=== PATIENT | female | born 1945 | race Asian ===

== ENCOUNTER → 2016-07-09 | Outpatient (CLI) | payer MEDICARE, OTHER ==
--- NOTE | 2016-07-09 09:39 | WOMENS IMAGING REPORT ---
EXAM DESCRIPTION: BONE DENSITY HIP/SPINE COMPLETED DATE/TIME: 07/09/2016 8:50 am REASON FOR STUDY: Z12.31 ROUTINE SCREENING MAMMO Z12.31 ENCNTR SCREEN MAMMOGRAM FOR MALIGNANT NEOPL ASM OF NEFTALI M81.0 AGE-RELATED OSTEOPOROSIS W/O CURRENT PATHOLOGICAL FRAC COMPARISON: 2002, 2008, 2010, 2012 TECHNIQUE: Dual-Energy X-ray Absorptiometry (DEXA) of the AP Spine and Hip. LIMITATIONS: None. FINDINGS: LUMBAR SPINE: The bone mineral density (BMD) measured from L1-L4 in the AP projection correlates with a T-score of +2.4, which is normal as defined by the World Health Organization. This includes vertebral body endp late sclerosis and sclerosis along the facet joints. HIP: The bone mineral density (BMD) measured in the left femoral neck at the hip correlates with a T-score of -0.7, which is within normal range as defined by the World Health Organization. This is stable c ompared to previous studies COMMENT: The World Health Organization defines low BMD as follows: T-score: Normal: Greater than -1.0 Osteopenia: Between -1.0 and -2.5 Osteoporosis: Less than -2.5 without fractures Established osteoporosis: Less than -2.5 with fractures In general, you may wish to consider: Diagnosis Treatment Follow-up DEXA Normal BMD Prevention 2-3 years Osteopenia Prevention/Therapy 1-2 years Osteoporosis Therapy Yearly TECHNICAL DOCUMENTATION: JOB ID: [id number] [employer]- All Rights Reserved
--- NOTE | 2016-07-09 10:21 | WOMENS IMAGING REPORT ---
EXAM DESCRIPTION: BILAT SCREENING MAMMO W/CAD COMPLETED DATE/TIME: 07/09/2016 8:50 am REASON FOR STUDY: Z12.31 ROUTINE SCREENING MAMMO Z12.31 ENCNTR SCREEN MAMMOGRAM FOR MALIGNANT NEOPL ASM OF NEFTALI M81.0 AGE-RELATED OSTEOPOROSIS W/O CURRENT PATHOLOGICAL FRAC COMPARISON: 11/08/2010 TECHNIQUE: Standard craniocaudal and mediolateral oblique views of each breast recorded using digita l acquisition. LIMITATIONS: None. FINDINGS: No masses, calcifications or architectural distortion. No areas of suspicion. Read with the assistance of CAD. .[facility] - R2 Cenova Version 1.3 .[facility] - R2 Cenova Version 1.3 .[facility] Imaging - R2 Cenova Version 2.4 .[facility] [place] - R2 Cenova Version 2.4 .[facility], [facility]1983 - R2 Nutrition Coordinator Version 9.2 BREAST DENSITY: b. There are scattered areas of fibroglandular density. BIRAD: 1 NEGATIVE RECOMMENDATION: ROUTINE SCREENING COMMENT: PATIENT NOTIFIED BY LETTER. The [employer] recommends an annual screening mammogram for women aged 40 years or over. Each patient will receive a reminder prior to the anniversary date of her mammogram. The [employer] (A[employer]) has developed recommendations for screening MRI of the breast s in certain patient populations, to be used in conjunction with mammography. Breast MRI surveillanc e may be appropriate for women with more than 20% lifetime risk of developing breast cancer as deter mined by genetic testing, significant family history of the disease, or history of mantle radiation f or Hodgkins Disease. ACR Practice Guidelines 2008. TECHNICAL DOCUMENTATION: FINDING NUMBER: (1) ASSESSMENT: (1) JOB ID: [id number] [employer]- All Rights Reserved
== END ==
LOC: WI 08:17
PROVIDERS: ATTEND Internal Medicine
DX: Z12.31 Encounter for screening mammogram for malignant neoplasm of breast (principal); M81.0 Age-related osteoporosis without current pathological fracture
CPT/HCPCS: 77080; G0202; 77067

== ENCOUNTER 2016-09-30 06:23 | Emergency (ER) | payer MEDICARE, OTHER ==
[2016-09-30] MEDS ORDERED: METHOCARBAMOL 500 MG TABLET PO ONE (08:13)
--- NOTE | 2016-09-30 09:30 | ER Document Report ---
HPI - HPI Patient complains to provider of: left knee pain Onset: This morning Onset/Duration: Sudden Quality of pain: Achy Severity: Severe Pain Level: 5 Context: Patient presents emergency department with complaints of left knee pain. She reports she woke up with the knee pain. She reports swelling to the knee. Denies past medical history of injury to the knee. She reports she has had 2 surgeries on her right knee and overcompensates and uses her left knee a lot. She reports recently been going up and down steps. She denies other symptoms such as fever vomiting diarrhea. She denies trauma. Associated Symptoms: None Exacerbated by: Movement Relieved by: Denies Similar symptoms previously: No Recently seen / treated by doctor: No - REPRODUCTIVE Reproductive: DENIES: : - DERM Skin Color: Normal Past Medical History - General Information source: Patient - Social History Smoking Status: Never Smoker Cigarette use (# per day): No Frequency of alcohol use: None Drug Abuse: None Lives with: Family Family History: None Patient has suicidal ideation: No Patient has homicidal ideation: No - Past Medical History Cardiac Medical History: Reports: Hx Hypercholesterolemia - meds x 5 years, Hx Hypertension - meds x 20 years, Hx Heart Murmur - denies SBE prophylaxis Pulmonary Medical History: Reports: Hx Bronchitis, Hx Pneumonia - denies hospitalization Denies: Hx Asthma, Hx COPD, Hx Respiratory Failure, Hx Sleep Apnea, Hx Tuberculosis - Hx BCG vaccination in [place] as child Neurological Medical History: Denies: Hx Cerebrovascular Accident, Hx Seizures Renal/ Medical History: Denies: Hx End Stage Renal Disease, Hx Kidney Stones, Hx Ovarian Cysts, Hx Peritoneal Dialysis, Hx Pelvic Inflammatory Disease Malignancy Medical History: Denies: Hx Breast Cancer, Hx Cervical Cancer, Hx Leukemia, Hx Lung Cancer, Hx Ovarian Cancer GI Medical History: Denies: Hx Crohn's Disease, Hx Gastroesophageal Reflux Disease, Hx Hiatal Hernia, Hx Irritable Bowel, Hx Liver Failure, Hx Ulcer Musculoskeltal Medical History: Reports Hx Arthritis, Denies Hx Fibromyalgia, Denies Hx Muscular Dystrophy Traumatic Medical History: Denies: Hx Fractures Infectious Medical History: Denies: Hx HIV Past Surgical History: Reports: Hx Appendectomy, Hx Cholecystectomy, Hx Hysterectomy, Hx Orthopedic Surgery - r knee. Denies: Hx Adenoidectomy, Hx Bowel Surgery, Hx Section, Hx Colostomy, Hx Coronary Artery Bypass Graft, Hx Gastric Bypass Surgery, Hx Herniorrhaphy, Hx Mastectomy, Hx Pacemaker , Hx Tonsillectomy, Hx Tubal Ligation - Immunizations Hx Diphtheria, Pertussis, Tetanus Vaccination: No - allergic Vertical Provider Document - CONSTITUTIONAL Agree With Documented VS: Yes Exam Limitations: No Limitations General Appearance: WD/WN, Mild Distress - winces when knee palpated - INFECTION CONTROL TRAVEL OUTSIDE OF THE [place] IN LAST 30 DAYS: No - HEENT HEENT: Atraumatic, Normocephalic - NECK Neck: Normal Inspection, Supple - RESPIRATORY Respiratory: Breath Sounds Normal, No Respiratory Distress O2 Sat by Pulse Oximetry: 97 - CARDIOVASCULAR Cardiovascular: Regular Rate - MUSCULOSKELETAL/EXTREMETIES Musculoskeletal/Extremeties: Tender - Complains of anterior suprapatellar swelling and pain . No calf pain no posterior leg pain, no calf swelling/warmth /redness - NEURO Level of Consciousness: Awake, Alert, Appropriate Motor/Sensory: No Motor Deficit - DERM Integumentary: Warm, Dry Adult Front & Back Diagram: 1 - reports anterior suprapatella ttp, swelling, no obvious deformity, no erythema, no warmth Course - Re-evaluation Re-evalutation: 09/30/16 10:[address] Ray who advised consult radiologist. I contacted Dr. Inman radiologist who reports looks like fluid in the suprapatella bursa. 09/30/16 Labs unremarkable. Knee has no erythema and no redness . Patient was instructed on x-ray. Patient was instructed on bursitis. Instructed on importance of follow-up with orthopedic and different options to include rest possible aspiration possible surgery. Patient and her verbalized understanding to all instructions. Chilton prescribed for pain - Vital Signs Vital signs: Temp Pulse Resp BP Pulse Ox 97.7 F 57 L 18 144/68 H 97 09/30/16 08:09 09/30/16 08:09 09/30/16 08:09 09/30/16 08:09 09/30/16 08:09 - Laboratory Result Diagrams: 09/30/16 09:50 09/30/16 09:50 - Diagnostic Test Radiology reviewed: Image reviewed, Reports reviewed - Diagnostic report text EXAM DESCRIPTION: KNEE LEFT 4 VIEW COMPLETED DATE/TIME: 09/30/2016 8:28 am REASON FOR STUDY: pain, swelling COMPARISON: 03/18/2015 TECHNIQUE: Four views study left knee LIMITATIONS: None. FINDINGS: No acute fractures. Minor narrowing noted medial joint compartment. Likely joint fluid. TECHNICAL DOCUMENTATION: JOB ID: [id number] [employer]- All Rights Reserved RAD/KNEE LEFT 4 VIEW IMPRESSION: No acute fractures. Minor narrowing medial joint compartment. Joint fluid Procedures - Immobilization Left Knee Immobilizer type: Jef wrap Performed by: PCT Post-Proc Neuro Vasc Exam: Unchanged from pre-exam Discharge - Discharge Clinical Impression: Suprapatellar bursitis of left knee, Elevated blood pressure reading Knee pain, acute Qualifiers: Laterality: left Qualified Code(s): M25.562 - Pain in left knee Condition: Stable Disposition: HOME, SELF-CARE Instructions: Bursitis ([facility]), Oral Narcotic Medication ([facility]), Jef Wrap ([facility]) Additional Instructions: *You have been evaluated for left knee pain, bursitis *Maintain the jef wrap for comfort *Rest/Ice/Elevate your knee *Use your walker to ambulate, avoid going up/down the steps, rest your knee *Follow up with orthopedics for evaluation-call for an appointment *Take medication as prescribed for acute pain *Return to ED for worsening condition, changes, needs Monitor your blood pressure. Your blood pressure was elevated today. This may be because you were anxious, in pain or because you need medication. It is important to follow up with your primary care provider for full evaluation. Prescriptions: Hydrocodone/Acetaminophen [Chilton 5-325 Tablet] 1 each PO QID #15 tablet Forms: Elevated Blood Pressure Referrals: CHRISTIAN NEELY MD [Primary Care Provider] - Follow up in 1 week [facility] [Provider Group] - Follow up in 3-5 days
[2016-09-30] MEDS ORDERED: IBUPROFEN 800 MG TABLET PO ONE (09:33)
[2016-09-30 10:00] LABS: ABSOLUTE EOSINOPHILS # (AUTO) 0.1 10^3/uL (0.0-0.6); ABSOLUTE LYMPHOCYTES (AUTO) 1.5 10^3/uL (0.5-4.7); ABSOLUTE MONOCYTES (AUTO) 0.3 10^3/uL (0.1-1.4); ABSOLUTE NEUT (AUTO) 2.2 10^3/uL (1.7-8.2); BASOPHILS % (AUTO) 0.5 % (0-2); EOSINOPHILS % (AUTO) 2.7 % (0-6); HEMATOCRIT 35.6 % (36.0-47.0); HEMOGLOBIN 12.3 g/dL (12.0-15.5); HGB HCT DIFFERENCE 1.3; LYMPHOCYTES % (AUTO) 36.3 % (13-45); MEAN CORPUSCULAR HEMOGLOBIN 30.7 pg (27.0-33.4); MEAN CORPUSCULAR HGB CONC 34.5 g/dL (32.0-36.0); MEAN CORPUSCULAR VOLUME 89 fl (80-97); MONOCYTES % (AUTO) 6.9 % (3-13); RED CELL DISTRIBUTION WIDTH 12.7 % (11.5-14.0); SEGMENTED NEUTROPHILS % (AUTO) 53.6 % (42-78); WHITE BLOOD COUNT 4.1 10^3/uL (4.0-10.5)
[2016-09-30 10:23] LABS: ALANINE AMINOTRANSFERASE 32 U/L (9-52); ALBUMIN 4.4 g/dL (3.5-5.0); ALKALINE PHOSPHATASE 47 U/L (38-126); ANION GAP 14 (5-19); ASPARTATE AMINO TRANSFERASE 27 U/L (14-36); BILIRUBIN,DIRECT 0.1 mg/dL (0.0-0.4); BILIRUBIN,TOTAL 0.4 mg/dL (0.2-1.3); BLOOD UREA NITROGEN 23 mg/dL (7-20); CALCIUM 9.7 mg/dL (8.4-10.2); CARBON DIOXIDE 25 mmol/L (22-30); CHLORIDE 104 mmol/L (98-107); CREATININE RESULT 0.54 mg/dL (0.52-1.25); GLUCOSE 92 mg/dL (75-110); POTASSIUM 4.1 mmol/L (3.6-5.0); SODIUM 142.7 mmol/L (137-145); URIC ACID 5.8 mg/dL (2.5-7.5)
[2016-09-30 10:43] VITALS: BP 139/64
== END 2016-09-30 10:43 | disposition home or self-care (01) ==
LOC: ER 06:23
DX: M71.9 Bursopathy, unspecified (principal); M25.562 Pain in left knee; I10 Essential (primary) hypertension
CPT/HCPCS: 99284; 36415; 84550; 85025; 80053; 73562; A9270 ×2

== ENCOUNTER 2016-11-08 06:39 | Emergency (ER) | payer MEDICARE, OTHER ==
[2016-11-08 06:58] VITALS: BP 154/76
--- NOTE | 2016-11-08 08:19 | ER Document Report ---
HPI - HPI Patient complains to provider of: cough, sore throat Onset: Other - few days Quality of pain: Achy Severity: Severe Pain Level: 5 Context: Presents to emergency department with complaints of cough sore throat for the past few days. Denies fever vomiting reports a little loose stools. Reports she initially thought it was allergies and has been taking Claritin without relief of symptoms. Denies chest pain shortness of breath. Reports occasional sputum production but usually is a dry cough. Reports her chest hurts when she coughs. Associated Symptoms: Nonproductive cough Exacerbated by: Coughing Relieved by: Denies Similar symptoms previously: No Recently seen / treated by doctor: No - CARDIOVASCULAR Cardiovascular: REPORTS: Chest pain - REPRODUCTIVE Reproductive: DENIES: : - DERM Skin Color: Normal Past Medical History - General Information source: Patient - Social History Smoking Status: Former Smoker Cigarette use (# per day): No Frequency of alcohol use: None Drug Abuse: None Lives with: Family - Family History: None Patient has suicidal ideation: No Patient has homicidal ideation: No - Past Medical History Cardiac Medical History: Reports: Hx Hypercholesterolemia - meds x 5 years, Hx Hypertension - meds x 20 years, Hx Heart Murmur - denies SBE prophylaxis Pulmonary Medical History: Reports: Hx Bronchitis, Hx Pneumonia - denies hospitalization Denies: Hx Asthma, Hx COPD, Hx Respiratory Failure, Hx Sleep Apnea, Hx Tuberculosis - Hx BCG vaccination in [place] as child Neurological Medical History: Denies: Hx Cerebrovascular Accident, Hx Seizures Renal/ Medical History: Denies: Hx End Stage Renal Disease, Hx Kidney Stones, Hx Ovarian Cysts, Hx Peritoneal Dialysis, Hx Pelvic Inflammatory Disease Malignancy Medical History: Denies: Hx Breast Cancer, Hx Cervical Cancer, Hx Leukemia, Hx Lung Cancer, Hx Ovarian Cancer GI Medical History: Denies: Hx Crohn's Disease, Hx Gastroesophageal Reflux Disease, Hx Hiatal Hernia, Hx Irritable Bowel, Hx Liver Failure, Hx Ulcer Musculoskeltal Medical History: Reports Hx Arthritis, Denies Hx Fibromyalgia, Denies Hx Muscular Dystrophy Traumatic Medical History: Denies: Hx Fractures Infectious Medical History: Denies: Hx HIV Past Surgical History: Reports: Hx Appendectomy, Hx Cholecystectomy, Hx Hysterectomy, Hx Orthopedic Surgery - r knee. Denies: Hx Adenoidectomy, Hx Bowel Surgery, Hx Section, Hx Colostomy, Hx Coronary Artery Bypass Graft, Hx Gastric Bypass Surgery, Hx Herniorrhaphy, Hx Mastectomy, Hx Pacemaker , Hx Tonsillectomy, Hx Tubal Ligation - Immunizations Hx Diphtheria, Pertussis, Tetanus Vaccination: No - allergic Vertical Provider Document - CONSTITUTIONAL Agree With Documented VS: Yes Exam Limitations: No Limitations General Appearance: WD/WN, No Apparent Distress - INFECTION CONTROL TRAVEL OUTSIDE OF THE [place] IN LAST 30 DAYS: No - HEENT HEENT: Atraumatic, Normal ENT Exam, Normocephalic, PERRLA. negative: Conjuctival Injection, Pharyngeal Exudate, Pharyngeal Tenderness, Pharyngeal Erythema, Tympanic Membrane Red, Tympanic Membrane Bulging - NECK Neck: Normal Inspection, Supple. negative: Lymphadenopathy-Left, Lymphadenopathy-Right - RESPIRATORY Respiratory: Breath Sounds Normal, No Respiratory Distress. negative: Rhonchi, Wheezing O2 Sat by Pulse Oximetry: 98 - CARDIOVASCULAR Cardiovascular: Regular Rate, Regular Rhythm - GI/ABDOMEN Gastrointestinal: Abdomen Soft, Abdomen Non-Tender - BACK Back: Normal Inspection - MUSCULOSKELETAL/EXTREMETIES Musculoskeletal/Extremeties: MAEW, FROM - NEURO Level of Consciousness: Awake, Alert, Appropriate Motor/Sensory: No Motor Deficit - DERM Integumentary: Warm, Dry Course - Re-evaluation Re-evalutation: 11/08/16 08:00 Patient instructed on plan of care and to include strep and chest x-ray. Patient seems hesitant to have a chest x-ray. She was instructed on the importance of obtaining a chest x-ray because of the cough. She was also instructed that she can refuse if she wanted. - Vital Signs Vital signs: Temp Pulse Resp BP Pulse Ox 98.1 F 73 18 154/76 H 98 11/08/16 06:55 11/08/16 06:55 11/08/16 06:55 11/08/16 06:55 11/08/16 06:55 Discharge - Discharge Clinical Impression: Cough, Sore throat, Elevated blood pressure reading Condition: Stable Disposition: HOME, SELF-CARE Instructions: Sore Throat ([facility]) Additional Instructions: *You have been evaluated for cold symptoms today, cough, sore throat *A throat culture is pending, you will be contacted should you need antibiotics *Increase fluid intake *Take over the counter cough medication as indicated *Take Tylenol as indicated *Follow up with Dr Neely next Thursday as scheduled *Return to ED for worsening condition, changes, needs Monitor your blood pressure. Your blood pressure was elevated today. This may be because you were anxious, in pain or because you need medication. It is important to follow up with your primary care provider for full evaluation. Forms: Elevated Blood Pressure Referrals: CHRISTIAN NEELY MD [Primary Care Provider] - 11/11/16
--- NOTE | 2016-11-08 08:50 | RADIOLOGY REPORT (SQ) ---
EXAM DESCRIPTION: CHEST PA/LAT COMPLETED DATE/TIME: 11/08/2016 8:16 am REASON FOR STUDY: cough COMPARISON: 02/08/2016, 10/18/2014 EXAM PARAMETERS: NUMBER OF VIEWS: two views TECHNIQUE: Digital Frontal and Lateral radiographic views of the chest acquired. RADIATION DOSE: NA LIMITATIONS: none FINDINGS: LUNGS AND PLEURA: No opacities, masses or pneumothorax. No pleural effusion. MEDIASTINUM AND HILAR STRUCTURES: No masses or contour abnormalities. HEART AND VASCULAR STRUCTURES: Heart normal size. No evidence for failure. BONES: No acute findings. HARDWARE: Clips right upper quadrant post cholecystectomy OTHER: No other significant finding. IMPRESSION: NO SIGNIFICANT RADIOGRAPHIC FINDING IN THE CHEST. TECHNICAL DOCUMENTATION: JOB ID: [id number] [employer]- All Rights Reserved
== END 2016-11-08 09:04 | disposition home or self-care (01) ==
LOC: ER 06:39
DX: R05 Cough (principal); J02.9 Acute pharyngitis, unspecified; I10 Essential (primary) hypertension; E78.00 Pure hypercholesterolemia, unspecified; Z87.891 Personal history of nicotine dependence; Z90.49 Acquired absence of other specified parts of digestive tract; Z90.710 Acquired absence of both cervix and uterus
CPT/HCPCS: 71020; 87070; 87880; 99283

== ENCOUNTER 2017-12-18 01:45 | Emergency (ER) | payer MEDICARE, OTHER ==
--- NOTE | 2017-12-18 03:23 | ER Document Report ---
ED General - General Chief Complaint: Abdominal Pain Stated Complaint: ABDOMINAL PAIN Time Seen by Provider: 12/18/17 02:45 Notes: Patient is a 72-year-old female presents with complaint of pain feels like a "pulling type sensation that radiates around her right flank. No dysuria. No bloody urine. No vomiting. No diarrhea. She has a previous history of partial hysterectomy, appendectomy, and cholecystectomy. She says eating does not really change the pain. She denies any fevers. Pain is been there for over a week. Pain is low but worse with twisting or movement. TRAVEL OUTSIDE OF THE [place] IN LAST 30 DAYS: No - Related Data Allergies/Adverse Reactions: Penicillins Allergy (Intermediate, Verified 09/30/16 06:29) numbness of lips Past Medical History - Social History Smoking Status: Never Smoker Chew tobacco use (# tins/day): No Frequency of alcohol use: None Drug Abuse: None Family History: None Patient has suicidal ideation: No Patient has homicidal ideation: No - Past Medical History Cardiac Medical History: Reports: Hx Hypercholesterolemia - meds x 5 years, Hx Hypertension - meds x 20 years, Hx Heart Murmur - denies SBE prophylaxis Pulmonary Medical History: Reports: Hx Bronchitis, Hx Pneumonia - denies hospitalization Denies: Hx Asthma, Hx COPD, Hx Respiratory Failure, Hx Sleep Apnea, Hx Tuberculosis - Hx BCG vaccination in [place] as child Neurological Medical History: Denies: Hx Cerebrovascular Accident, Hx Seizures Renal/ Medical History: Denies: Hx End Stage Renal Disease, Hx Kidney Stones, Hx Ovarian Cysts, Hx Peritoneal Dialysis, Hx Pelvic Inflammatory Disease Malignancy Medical History: Denies: Hx Breast Cancer, Hx Cervical Cancer, Hx Leukemia, Hx Lung Cancer, Hx Ovarian Cancer GI Medical History: Denies: Hx Crohn's Disease, Hx Gastroesophageal Reflux Disease, Hx Hiatal Hernia, Hx Irritable Bowel, Hx Liver Failure, Hx Pancreatitis , Hx Ulcer Musculoskeletal Medical History: Reports Hx Arthritis, Denies Hx Fibromyalgia, Denies Hx Muscular Dystrophy Traumatic Medical History: Denies: Hx Fractures Infectious Medical History: Denies: Hx HIV Past Surgical History: Reports: Hx Appendectomy, Hx Cholecystectomy, Hx Hysterectomy, Hx Orthopedic Surgery - r knee. Denies: Hx Adenoidectomy, Hx Bowel Surgery, Hx Section, Hx Colostomy, Hx Coronary Artery Bypass Graft, Hx Gastric Bypass Surgery, Hx Herniorrhaphy, Hx Mastectomy, Hx Pacemaker , Hx Tonsillectomy, Hx Tubal Ligation - Immunizations Hx Diphtheria, Pertussis, Tetanus Vaccination: No - allergic Review of Systems - Review of Systems Notes: My Normal Review Basic REVIEW OF SYSTEMS: CONSTITUTIONAL : Denies fever, chills, or sweats. Denies recent illness. EENT: Denies eye, ear, throat, or mouth pain or symptoms. Denies nasal or sinus congestion. CARDIOVASCULAR: Denies chest pain. RESPIRATORY: Denies cough, cold, or chest congestion. Denies shortness of breath, difficulty breathing, or wheezing. GASTROINTESTINAL: Right flank pain. Denies nausea, vomiting, or diarrhea. Denies constipation. Last BM: GENITOURINARY: Denies difficulty urinating, painful urination, burning, frequency, or blood in urine. MUSCULOSKELETAL: Denies neck or back pain or joint pain or swelling. SKIN: Denies rash or skin lesions. NEUROLOGICAL: Denies altered mental status or loss of consciousness. Denies headache. Denies weakness or paralysis or loss of use of either side. Denies problems with gait or speech. Denies sensory or motor loss. ALL OTHER SYSTEMS REVIEWED AND NEGATIVE. Physical Exam - Vital signs Vitals: Temp Pulse Resp BP Pulse Ox 97.9 F 67 18 148/64 H 97 12/18/17 01:46 12/18/17 01:46 12/18/17 01:46 12/18/17 01:46 12/18/17 01:46 - Notes Notes: General Appearance: Well nourished, alert, cooperative, no acute distress, mild obvious discomfort. Well appearing. Vitals: reviewed, See vital signs table. Head: no swelling or tenderness to the head Eyes: PERRL, EOMI, Conjuctiva clear Mouth: No decreasd moisture Lungs: No wheezing, No rales, No rhonci, No accessory muscle use, good air exchange bilaterally. Heart: Normal rate, Regular rythm, No murmur, no rub Abdomen: Normal BS, soft, No rigidity, patient is a pain on the right flank however is not made worse with palpation except for pinpoint area directly over the right mid flank. No swelling. No redness. Patient does have some scars from her previous surgeries. No pain to palpation over the anterior abdomen., No guarding, no rebound, no abdominal masses, no organomegaly Extremities: strength 5/5 in all extremities, good pulses in all extremities, no swelling or tenderness in the extremities, no edema. Skin: warm, dry, appropriate color, no rash Neuro: speech clear, oriented x 3, normal affect, responds appropriately to questions. Course - Re-evaluation Re-evalutation: 12/18/17 06:15 Patient still has some pain. The patient turned and moved just to try get a better grasp of the pain. Whenever she turns or rolls she gets pinpoint pain that is right where her serratus anterior meets her abdominal rectus muscle on the right. Again this pain is not really reproducible palpation but made a lot worse with movement. Suspect most likely she might have abdominal muscle pull or tear. She does not have any evidence of hernia. CT scan shows no evidence of stone or other any other concerning findings. CT scan does show fatty liver which patient is already aware of and is being followed for. I will prescribe her some muscle relaxer. I encourage her take Tylenol Motrin for the pain otherwise. I encouraged her return to ER if she has worsening pain, vomiting, or feels unwell. Patient agrees with plan will be discharged home. Dictation of this chart was performed using voice recognition software; therefore, there may be some unintended grammatical errors. - Vital Signs Vital signs: Temp Pulse Resp BP Pulse Ox 97.9 F 67 18 148/64 H 97 12/18/17 01:46 12/18/17 01:46 12/18/17 01:46 12/18/17 01:46 12/18/17 01:46 - Laboratory Result Diagrams: 12/18/17 03:00 12/18/17 03:00 Laboratory results interpreted by me: 12/18/17 03:00 BUN 26 H AST 41 H Discharge - Discharge Clinical Impression: Flank pain Condition: Good Disposition: HOME, SELF-CARE Additional Instructions: I suspect your pain could be related to a pulled muscle on your side. Your CT scan does not show any thing concerning. There is no findings suggestive of infection. Your blood work is normal appearing. Your urine study is also normal appearing. Please rest and do not do anything exertional over the next several days. Please take Tylenol and Motrin for pain. I have also prescribed you a muscle relaxer to see if this helps with your pain as well. Please follow -up with your doctor on Thursday for close reevaluation. Please return to ER immediately for fevers, worsening pain, vomiting, or feel unwell. Prescriptions: Metaxalone [Skelaxin 800 mg Tablet] 800 mg PO ASDIR PRN #20 tablet PRN Reason: Referrals: CHRISTIAN NEELY MD [Primary Care Provider] - 12/21/17
[2017-12-18 03:27] LABS: ABSOLUTE EOSINOPHILS # (AUTO) 0.2 10^3/uL (0.0-0.6); ABSOLUTE LYMPHOCYTES (AUTO) 1.7 10^3/uL (0.5-4.7); ABSOLUTE MONOCYTES (AUTO) 0.5 10^3/uL (0.1-1.4); ABSOLUTE NEUT (AUTO) 2.8 10^3/uL (1.7-8.2); BASOPHILS % (AUTO) 0.2 % (0-2); EOSINOPHILS % (AUTO) 3.3 % (0-6); HEMATOCRIT 36.9 % (36.0-47.0); HEMOGLOBIN 12.6 g/dL (12.0-15.5); MEAN CORPUSCULAR HEMOGLOBIN 30.7 pg (27.0-33.4); MEAN CORPUSCULAR HGB CONC 34.2 g/dL (32.0-36.0); MEAN CORPUSCULAR VOLUME 90 fl (80-97); MONOCYTES % (AUTO) 9.1 % (3-13); PLATELET COUNT 217 10^3/uL (150-450); RED BLOOD COUNT 4.11 10^6/uL (3.72-5.28); RED CELL DISTRIBUTION WIDTH 12.5 % (11.5-14.0); SEGMENTED NEUTROPHILS % (AUTO) 54.4 % (42-78); TOTAL CELLS COUNTED % (AUTO) 100 %; WHITE BLOOD COUNT 5.2 10^3/uL (4.0-10.5)
[2017-12-18 03:35] LABS: APPEARANCE,URINE CLEAR; BILIRUBIN,URINE NEGATIVE (NEGATIVE); COLOR,URINE STRAW; GLUCOSE, URINE NEGATIVE (NEGATIVE); KETONES,URINE NEGATIVE (NEGATIVE); LEUKOCYTE ESTERASE,URINE NEGATIVE (NEGATIVE); NITRITE,URINE NEGATIVE (NEGATIVE); PROTEIN,URINE NEGATIVE (NEGATIVE); URINE SPECIFIC GRAVITY 1.008; UROBILINOGEN,URINE NEGATIVE mg/dL (<2.0)
[2017-12-18 03:40] LABS: ALANINE AMINOTRANSFERASE 52 U/L (9-52); ALBUMIN 4.5 g/dL (3.5-5.0); ALKALINE PHOSPHATASE 52 U/L (38-126); ANION GAP 11 (5-19); ASPARTATE AMINO TRANSFERASE 41 U/L (14-36); BILIRUBIN,DIRECT 0.2 mg/dL (0.0-0.4); BILIRUBIN,TOTAL 0.3 mg/dL (0.2-1.3); BLOOD UREA NITROGEN 26 mg/dL (7-20); CALCIUM 9.6 mg/dL (8.4-10.2); CARBON DIOXIDE 26 mmol/L (22-30); CHLORIDE 106 mmol/L (98-107); GLUCOSE 100 mg/dL (75-110); SODIUM 143.3 mmol/L (137-145); TOTAL PROTEIN 7.5 g/dL (6.3-8.2)
[2017-12-18] MEDS ORDERED: KETOROLAC TROMETHAMINE INJ/PF 30 MG/1 ML SDV IV ONE (05:06)
[2017-12-18] MEDS ORDERED: KETOROLAC TROMETHAMINE INJ/PF 30 MG/1 ML SDV IM ONE (05:08)
--- NOTE | 2017-12-18 06:07 | RADIOLOGY REPORT (SQ) ---
EXAM DESCRIPTION: CT ABDOMEN WITHOUT IV CONTRAST COMPLETED DATE/TME: 12/18/2017 05:06 CLINICAL HISTORY: right flank pain COMPARISON: None Available. TECHNIQUE: CT of the abdomen and pelvis without IV contrast. Evaluation of the solid organs and vasculature is suboptimal due to lack of IV contrast. DLP: 568.78 mGy-cm FINDINGS: Lung Bases: The visualized lung bases are clear. Bones: No destructive bone lesions identified. Degenerative change of the lumbar spine. Abdomen: Liver: The liver has normal size and decreased density. Gallbladder: Prior cholecystectomy. Spleen, Pancreas, and Adrenal Glands: The spleen, pancreas, and adrenal glands are unremarkable. Kidneys: The kidneys have normal size and contour without evidence of hydronephrosis. No obstructing ureteral calculi. Vasculature: Aortoiliac atherosclerosis. IVC is unremarkable. Stomach: The stomach and duodenum have normal course. Other: No free intraperitoneal air. No free fluid or lymphadenopathy. Pelvis: Bladder: Urinary bladder is unremarkable. Bowel: Scattered diverticula of the colon. No dilated loops of large or small bowel. No pericolic inflammatory change. Appendix: The appendix is not definitely identified. No evidence of acute appendicitis. Pelvis: Likely calcified uterine fibroids. No large adnexal masses. IMPRESSION: 1. No acute inflammatory or obstructive process identified. 2. Diverticulosis without evidence of acute diverticulitis. 3. Hepatic steatosis. This exam was performed according to our departmental dose-optimization program, which includes automated exposure control, adjustment of the mA and/or kV according to patient size and/or use of iterative reconstruction technique.
[2017-12-18 06:46] VITALS: BP 133/71
== END 2017-12-18 06:30 | disposition home or self-care (01) ==
LOC: ER 01:45
DX: R10.9 Unspecified abdominal pain (principal); K76.0 Fatty (change of) liver, not elsewhere classified; I10 Essential (primary) hypertension; Z90.49 Acquired absence of other specified parts of digestive tract; Z90.711 Acquired absence of uterus with remaining cervical stump; Z88.0 Allergy status to penicillin
CPT/HCPCS: 99284; 96372; 36415; 85025; 80053; 81001; 76380; J1885

== ENCOUNTER 2018-10-11 03:55 | Emergency (ER) | payer MEDICARE, OTHER ==
[2018-10-11] MEDS ORDERED: CEPHALEXIN 500 MG CAPSULE PO ONE (04:20)
[2018-10-11] MEDS ORDERED: IBUPROFEN 800 MG TABLET PO ONE (04:20)
[2018-10-11] MEDS ORDERED: DIPH/PERTUSS(ACELL)/TETANUS VAC/PF 0.5 ML SYR (>=10YO) IM ONE (04:20)
--- NOTE | 2018-10-11 04:33 | ER Document Report ---
HPI - HPI Patient complains to provider of: Leg injury Time Seen by Provider: 10/11/18 04:16 Pain Level: 2 Context: Patient is a 72-year-old female presents to the emergency department for right lower extremity injury. Patient states 2 days ago she tripped and fell onto a wood piece. States she feels as though she may have just sustained an abrasion but states that the redness has continued, gotten worse and her pain is increased. Patient is unsure if there is any foreign body. Patient's denying any fever. Patient states she feels as though her tetanus immunization is not up-to-date. Patient then states she has an allergy to tetanus. Will ask her what her allergies she states when she gets the immunization she gets a small amount of erythema around the injection site. She is denying any respiratory distress, hives, vomiting, shortness of breath with tetanus immunizations. Past medical history: Hypertension, hyperlipidemia Medications: Unknown - REPRODUCTIVE Reproductive: DENIES: : Past Medical History - General Information source: Patient - Social History Smoking Status: Never Smoker Frequency of alcohol use: None Drug Abuse: None Family History: None Patient has suicidal ideation: No Patient has homicidal ideation: No - Past Medical History Cardiac Medical History: Reports: Hx Hypercholesterolemia - meds x 5 years, Hx Hypertension - meds x 20 years, Hx Heart Murmur - denies SBE prophylaxis Pulmonary Medical History: Reports: Hx Bronchitis, Hx Pneumonia - denies hospita lization Denies: Hx Asthma, Hx COPD, Hx Respiratory Failure, Hx Sleep Apnea, Hx Tuberculosis - Hx BCG vaccination in [place] as child Neurological Medical History: Denies: Hx Cerebrovascular Accident, Hx Seizures Renal/ Medical History: Denies: Hx End Stage Renal Disease, Hx Kidney Stones, Hx Ovarian Cysts, Hx Peritoneal Dialysis, Hx Pelvic Inflammatory Disease Malignancy Medical History: Denies: Hx Breast Cancer, Hx Cervical Cancer, Hx Leukemia, Hx Lung Cancer, Hx Ovarian Cancer GI Medical History: Denies: Hx Crohn's Disease, Hx Gastroesophageal Reflux Disease, Hx Hiatal Hernia, Hx Irritable Bowel, Hx Liver Failure, Hx Pancreatitis, Hx Ulcer Musculoskeletal Medical History: Reports Hx Arthritis, Denies Hx Fibromyalgia, Denies Hx Muscular Dystrophy Traumatic Medical History: Denies: Hx Fractures Infectious Medical History: Denies: Hx HIV Past Surgical History: Reports: Hx Appendectomy, Hx Cholecystectomy, Hx Hysterectomy, Hx Orthopedic Surgery - r knee. Denies: Hx Adenoidectomy, Hx B owel Surgery, Hx Section, Hx Colostomy, Hx Coronary Artery Bypass Graft, Hx Gastric Bypass Surgery, Hx Herniorrhaphy, Hx Mastectomy, Hx Pacemaker, Hx Tonsillectomy, Hx Tubal Ligation - Immunizations Hx Diphtheria, Pertussis, Tetanus Vaccination: No - allergic Vertical Provider Document - CONSTITUTIONAL Agree With Documented VS: Yes Notes: GENERAL: Alert, interacts well. No acute distress. HEAD: Normocephalic, atraumatic. EYES: Pupils equal, round, and reactive to light. Extraocular movements intact. ENT: Oral mucosa moist, tongue midline. NECK: Full range of motion. Supple. Trachea midline. LUNGS: Clear to auscultation bilaterally, no wheezes, rales, or rhonchi. No respiratory distress. HEART: Regular rate and rhythm. No murmur ABDOMEN: Soft, non-tender. Non-distended. Bowel sounds present in all 4 quadrants. EXTREMITIES: Moves all 4 extremities spontaneously. No edema, normal radial and dorsalis pedis pulses bilaterally. No cyanosis. BACK: no cervical, thoracic, lumbar midline tenderness. No saddle anesthesia, normal distal neurovascular exam. NEUROLOGICAL: Alert and oriented x3. Normal speech. cranial nerves II through XII grossly intact PSYCH: Normal affect, normal mood. SKIN: Warm, dry, normal turgor. Patient has a 2 cm scabbed wound noted to the distal aspect of her right lower extremity medially. Surrounding erythema minimally, pain upon palpation, no obvious discharge, fluctuance or induration noted. - INFECTION CONTROL TRAVEL OUTSIDE OF THE [place] IN LAST 30 DAYS: No Course - Re-evaluation Re-evalutation: 10/11/18 05:23 X-ray reveals no signs of foreign body. Bacitracin has been placed on wound. Discussed use of antibiotics for continued care and return precautions. Patient stable for discharge. - Vital Signs Vital signs: Temp Pulse Resp BP Pulse Ox 97.9 F 65 18 150/65 H 97 10/11/18 04:03 10/11/18 04:03 10/11/18 04:03 10/11/18 04:03 10/11/18 04:03 Discharge - Discharge Clinical Impression: Cellulitis Qualifiers: Site of cellulitis: extremity Site of cellulitis of extremity: lower extremity Laterality: right Qualified Code(s): L03.115 - Cellulitis of right lower limb Condition: Stable Disposition: HOME, SELF-CARE Instructions: Tetanus Immunization Given ([facility]), Antibiotic Ointment Protection ([facility]), Prophylactic Antibiotic ([facility]) Additional Instructions: As we discussed you have been seen and treated in the emergency department for an injury to her right lower leg. I am going to place on antibiotics so this wound does not get infected. He has been updated on her tetanus immunization. Please return to the emergency room should he have an increase in the redness, swelling, see any discharge from your wound site. Prescriptions: Cephalexin Monohydrate [Keflex 500 mg Capsule] 500 mg PO BID 7 Days #14 capsule Referrals: CHRISTIAN NEELY MD [Primary Care Provider] - Follow up as needed
--- NOTE | 2018-10-11 05:08 | RADIOLOGY REPORT (SQ) ---
EXAM DESCRIPTION: XR TIBIA FIBULA 2 VIEWS COMPLETED DATE/TME: 10/11/2018 04:20 CLINICAL HISTORY: 72 years, Female, injury possible FB distal COMPARISON: None. NUMBER OF VIEWS: 2 TECHNIQUE: 2 view right tibia fibula LIMITATIONS: None. FINDINGS: Osteopenia. Postsurgical change right knee. Negative for acute fracture or dislocation. IMPRESSION: No acute osseous abnormality copyright 2010 [employer]- All Rights Reserved
[2018-10-11 06:11] VITALS: BP 126/61
== END 2018-10-11 06:10 | disposition home or self-care (01) ==
LOC: ER 03:55
DX: L03.115 Cellulitis of right lower limb (principal); S89.91XA Unspecified injury of right lower leg, initial encounter; W01.198A Fall on same level from slipping, tripping and stumbling with subsequent striking against other object, initial encounter; I10 Essential (primary) hypertension; Z88.7 Allergy status to serum and vaccine
CPT/HCPCS: 99283; 90471; 73590; 90715; A9270 ×2

== ENCOUNTER → 2018-10-19 | Outpatient (CLI) | payer MEDICARE, OTHER ==
--- NOTE | 2018-10-19 10:48 | WOMENS IMAGING REPORT ---
EXAM DESCRIPTION: BONE DENSITY HIP/SPINE COMPLETED DATE/TIME: 10/19/2018 10:27 am REASON FOR STUDY: Z12.31 ROUTINE 3D BILATERAL SCREENING, M81.0 AGE RELATED OSTEOPOROSIS WITHO Z12.31 ENCNTR SCREEN MAMMOGRAM FOR MALIGNANT NEOPLASM OF NEFTALI M81.0 AGE-RELATED OSTEOPOROSIS W/O CURRENT P ATHOLOGICAL FRAC COMPARISON: Multiple since 2003, most recently 2017 TECHNIQUE: Dual-Energy X-ray Absorptiometry (DEXA) of the AP Spine and Hip. LIMITATIONS: None. FINDINGS: LUMBAR SPINE: The bone mineral density (BMD) measured from L1-L4 in the AP projection correlates with a T-score of +0.01, which is normal as defined by the World Health Organization. This is similar compared to prev ious studies HIP: The bone mineral density (BMD) measured in the left femoral neck at the hip correlates with a T-score of -1.0, which is osteopenic as defined by the World Health Organization. This represents a 5% decl ine in bone density compared to 2017 IMPRESSION: 1. LUMBAR SPINE: Normal 2. HIP: Osteopenic COMMENT: The World Health Organization defines low BMD as follows: T-score: Normal: Greater than -1.0 Osteopenia: Between -1.0 and -2.5 Osteoporosis: Less than -2.5 without fractures Established osteoporosis: Less than -2.5 with fractures In general, you may wish to consider: Diagnosis Treatment Follow-up DEXA Normal BMD Prevention 2-3 years Osteopenia Prevention/Therapy 1-2 years Osteoporosis Therapy Yearly TECHNICAL DOCUMENTATION: JOB ID: [id number] [employer]- All Rights Reserved Reading location - IP/workstation name: [email or web address]
--- NOTE | 2018-10-19 12:01 | WOMENS IMAGING REPORT ---
EXAM DESCRIPTION: 3D SCREENING MAMMO BILAT COMPLETED DATE/TIME: 10/19/2018 10:27 am REASON FOR STUDY: Z12.31 ROUTINE 3D BILATERAL SCREENING, Z12.31 ENCNTR SCREEN MAMMOGRAM FOR MALIGNA NT NEOPLASM OF NEFTALI M81.0 AGE-RELATED OSTEOPOROSIS W/O CURRENT PATHOLOGICAL FRAC COMPARISON: 2010 EXAM PARAMETERS: Views: Standard craniocaudal and mediolateral oblique views of each breast recorded using digital acquisition and breast tomosynthesis. Read with the assistance of CAD. .[facility] - [employer] Version 9.2 LIMITATIONS: None. FINDINGS: No suspicious masses, suspicious calcifications or architectural distortion. No areas of c oncern. IMPRESSION: Assessment: Negative MAMMOGRAM. BIRADS 1. BREAST DENSITY: b. There are scattered areas of fibroglandular density. BIRAD: 1 NEGATIVE RECOMMENDATION: ROUTINE SCREENING COMMENT: The patient has been notified of the results by letter per MQSA requirements. Additional no tification policies are in place for contacting patient with suspicious or incomplete findings. Quality ID #[id number]: The [employer] recommends an annual screening mammogram for women aged 40 years or over. This facility utilizes a reminder system to ensure that all patients receive reminder letters, and/or direct phone calls for appointments. This includes reminders for routine scr eening mammograms, diagnostic mammograms, or other Breast Imaging Interventions when appropriate. Th is patient will be placed in the appropriate reminder system. TECHNICAL DOCUMENTATION: FINDING NUMBER: (1) ASSESSMENT: (1) JOB ID: [id number] [employer] All Rights Reserved Reading location - IP/workstation name: [email or web address]
== END ==
LOC: WI 09:41
PROVIDERS: ATTEND Internal Medicine
DX: Z12.31 Encounter for screening mammogram for malignant neoplasm of breast (principal); M81.0 Age-related osteoporosis without current pathological fracture
CPT/HCPCS: 77063; 77067; 77080

== ENCOUNTER 2020-03-19 08:23 | Observation (INO) | payer MEDICARE, OTHER ==
--- NOTE | 2020-03-19 09:26 | RADIOLOGY REPORT (SQ) ---
EXAM DESCRIPTION: CHEST SINGLE VIEW IMAGES COMPLETED DATE/TIME: 03/19/2020 8:00 am REASON FOR STUDY: chest pain COMPARISON: 11/08/2016 EXAM PARAMETERS: NUMBER OF VIEWS: One view. TECHNIQUE: Single frontal radiographic view of the chest acquired. RADIATION DOSE: NA LIMITATIONS: None. FINDINGS: LUNGS AND PLEURA: No opacities, masses or pneumothorax. No pleural effusion. MEDIASTINUM AND HILAR STRUCTURES: No masses. Contour normal. HEART AND VASCULAR STRUCTURES: Heart normal in size. Normal vasculature. BONES: No acute findings. HARDWARE: None in the chest. OTHER: No other significant finding. IMPRESSION: NO ACUTE RADIOGRAPHIC FINDING IN THE CHEST. TECHNICAL DOCUMENTATION: JOB ID: [id number] 2010 [email or web address]- All Rights Reserved Reading location - IP/workstation name: [email or web address]
[2020-03-19 09:28] LABS: ABSOLUTE EOSINOPHILS # (AUTO) 0.1 10^3/uL (0.0-0.6); ABSOLUTE LYMPHOCYTES (AUTO) 1.3 10^3/uL (0.5-4.7); ABSOLUTE MONOCYTES (AUTO) 0.3 10^3/uL (0.1-1.4); ABSOLUTE NEUT (AUTO) 2.2 10^3/uL (1.7-8.2); BASOPHILS % (AUTO) 0.5 % (0-2); EOSINOPHILS % (AUTO) 3.4 % (0-6); HEMATOCRIT 37.4 % (36.0-47.0); HEMOGLOBIN 12.8 g/dL (12.0-15.5); MEAN CORPUSCULAR HGB CONC 34.2 g/dL (32.0-36.0); MEAN CORPUSCULAR VOLUME 91 fl (80-97); MONOCYTES % (AUTO) 7.6 % (3-13); PLATELET COUNT 219 10^3/uL (150-450); RED BLOOD COUNT 4.13 10^6/uL (3.72-5.28); SEGMENTED NEUTROPHILS % (AUTO) 55.5 % (42-78); TOTAL CELLS COUNTED % (AUTO) 100 %; WHITE BLOOD COUNT 3.9 10^3/uL (4.0-10.5)
[2020-03-19 09:56] LABS: CREATINE KINASE MB 1.49 ng/mL (<4.55)
[2020-03-19 10:01] LABS: TROPONIN I < 0.012 ng/mL
[2020-03-19 10:02] LABS: ALBUMIN 4.6 g/dL (3.5-5.0); ALKALINE PHOSPHATASE 46 U/L (38-126); ANION GAP 9 (5-19); ASPARTATE AMINO TRANSFERASE 55 U/L (14-36); BILIRUBIN,DIRECT 0.3 mg/dL (0.0-0.4); BILIRUBIN,TOTAL 0.5 mg/dL (0.2-1.3); BLOOD UREA NITROGEN 18 mg/dL (7-20); CALCIUM 9.8 mg/dL (8.4-10.2); CARBON DIOXIDE 26 mmol/L (22-30); CHLORIDE 104 mmol/L (98-107); CREATINE KINASE 93 U/L (30-135); GLUCOSE 96 mg/dL (75-110); POTASSIUM 4.4 mmol/L (3.6-5.0); TOTAL PROTEIN 7.8 g/dL (6.3-8.2)
[2020-03-19] MEDS ORDERED: ASPIRIN 325 MG TABLET PO ONE (11:04)
--- NOTE | 2020-03-19 11:17 | ER Document Report ---
ED Cardiac - General Chief Complaint: Chest Pain Stated Complaint: CHEST PAIN,LEFT ARM TINGLING Time Seen by Provider: 03/19/20 09:15 Primary Care Provider: CHRISTIAN NEELY MD [Primary Care Provider] - Follow up as needed Notes: HPI: 74-year-old female presents today with around 1 week of "chest pain" that she describes as "bricks on my chest". No real aggravating relieving factors. Not exertional. She does state some radiation to the left arm. No nausea, vomiting, fevers, diaphoresis, calf pain or leg swelling, cough or shortness of breath. When asked why she did not come in a week ago she states that she is ta ivonne a memory [id number] medication with a possible side effect of chest pain. Her told her not to come at that time. She called her primary care physician who told her to come here expeditiously. She did not take aspirin yet today. CHIN: See HPI All other review of systems reviewed and otherwise negative Reviewed vital signs and nursing note as charted by RN. PHYSICAL EXAM: CONSTITUTIONAL: Alert and oriented and responds appropriately to questions. Well-appearing; well-nourished HEAD: Normocephalic; atraumatic NECK: Supple without meningismus; non-tender; no cervical lymphadenopathy, no masses CARD: Regular rate and rhythm; 4 out of 6 systolic murmur heard best at the right sternal border; symmetric distal pulses RESP: Normal chest excursion without splinting or tachypnea; breath sounds clear and equal bilaterally; no wheezes, no rhonchi, no rales ABD/GI: Normal bowel sounds; non-distended; soft, non-tender; no palpable organomegaly or masses BACK: The back appears normal and is non-tender to palpation EXT: Normal ROM in all joints; non-tender to palpation; no edema SKIN: No acute lesions noted NEURO: CN 2-12 intact; 5/5 bilateral upper and lower extremity strength with sensation intact to light touch PSYCH: The patient's mood and manner are appropriate. Grooming and personal hygiene are appropriate. TRAVEL OUTSIDE OF THE [place] IN LAST 30 DAYS: No - Related Data Allergies/Adverse Reactions: Penicillins Allergy (Intermediate, Verified 03/19/20 08:42) numbness of lips Tetanus Vaccines and Toxoid Adverse Reaction (Verified 03/19/20 08:42) Home Medications: gout. htn. cholesterol. knee pain Past Medical History - Social History Smoking Status: Never Smoker Chew tobacco use (# tins/day): No Frequency of alcohol use: None Drug Abuse: None Family History: None Patient has homicidal ideation: No - Past Medical History Cardiac Medical History: Reports: Hx Hypercholesterolemia - meds x 5 years, Hx Hypertension - meds x 20 years, Hx Heart Murmur - denies SBE prophylaxis Pulmonary Medical History: Reports: Hx Bronchitis, Hx Pneumonia - denies hospitalization Denies: Hx Asthma, Hx COPD, Hx Respiratory Failure, Hx Sleep Apnea, Hx Tuberculosis - Hx BCG vaccination in [place] as child Neurological Medical History: Denies: Hx Cerebrovascular Accident, Hx Seizures Renal/ Medical History: Denies: Hx End Stage Renal Disease, Hx Kidney Stones, Hx Ovarian Cysts, Hx Peritoneal Dialysis, Hx Pelvic Inflammatory Disease Malignancy Medical History: Denies: Hx Breast Cancer, Hx Cervical Cancer, Hx Leukemia, Hx Lung Cancer, Hx Ovarian Cancer GI Medical History: Denies: Hx Crohn's Disease, Hx Gastroesophageal Reflux Disease, Hx Hiatal Hernia, Hx Irritable Bowel, Hx Liver Failure, Hx Pancreat itis, Hx Ulcer Musculoskeletal Medical History: Reports Hx Arthritis, Denies Hx Fibromyalgia, Denies Hx Muscular Dystrophy Traumatic Medical History: Denies: Hx Fractures Infectious Medical History: Denies: Hx HIV Past Surgical History: Reports: Hx Appendectomy, Hx Cholecystectomy, Hx Hysterectomy, Hx Orthopedic Surgery - r knee. Denies: Hx Adenoidectomy, Hx Bowel Surgery, Hx Section, Hx Colostomy, Hx Coronary Artery Bypass Graft, Hx Gastric Bypass Surgery, Hx Herniorrhaphy, Hx Mastectomy, Hx Pacemaker, Hx Tonsillectomy, Hx Tubal Ligation - Immunizations Hx Diphtheria, Pertussis, Tetanus Vaccination: No - allergic Physical Exam - Vital signs Vitals: Temp Pulse Resp BP Pulse Ox 98.5 F 66 20 149/81 H 96 03/19/20 08:34 03/19/20 08:34 03/19/20 08:34 03/19/20 08:34 03/19/20 08:34 Course - Re-evaluation Re-evalutation: Given the above history and physical examination, we will obtain cardiac labs, EKG, x-ray of the chest, and reassess. Patient is pain-free currently. Vital signs as recorded. Patient is not tachycardic or hypoxic. Given the above information I do believe PE and dissection to be unlikely. EKG shows a heart rate of 67, normal sinus rhythm, first-degree AV block, poor wave progression, no ST elevation or depression. 03/19/20 11:15 Labs and imaging as recorded. Aspirin has been provided. Patient will be admitted for further evaluation and treatment. - Vital Signs Vital signs: Temp Pulse Resp BP Pulse Ox 98.5 F 66 20 148/73 H 96 03/19/20 08:34 03/19/20 08:34 03/19/20 10:01 03/19/20 10:01 03/19/20 10:01 - Laboratory Result Diagrams: 03/19/20 09:13 03/19/20 09:13 Laboratory results interpreted by me: 03/19/20 03/19/20 09:13 09:13 WBC 3.9 L Creatinine 0.51 L AST 55 H ALT 59 H Discharge - Discharge Clinical Impression: Chest pain Qualifiers: Chest pain type: precordial pain Qualified Code(s): R07.2 - Precordial pain Condition: Fair Disposition: ADMITTED OBSERVATION Admitting Provider: Cristian (Hospitalist) Unit Admitted: Telemetry Referrals: CHRISTIAN NEELY MD [Primary Care Provider] - Follow up as needed
[2020-03-19] MEDS ORDERED: IPRATROPIUM/ALBUTEROL 0.5-2.5 MG/3 ML AMPUL NEB ONE (11:43)
[2020-03-19] MEDS ORDERED: ACETAMINOPHEN 325 MG TABLET PO PRN (11:43)
[2020-03-19] MEDS ORDERED: MORPHINE SULFATE 10 MG/ML INJ IV PRN (12:00)
--- NOTE | 2020-03-19 12:00 | PDOC H&P ---
History of Present Illness Admission Date/PCP: 03/19/20 11:34 CHRISTIAN NEELY MD Patient complains of: Came in with complaints of chest pain History of Present Illness: ADRIAN RYAN is a 74 year old female with history of hypertension, hypercholesterolemia, history of right knee replacement, heart murmur came to the emergency room with complaints of chest pain. She called primary care physician upon his advice came to the emergency room for further evaluation. Work-up is negative so far. At the time of my examination patient is chest pain-free. Agreed to stay in the hospital for further management. Scheduled for nuclear stress test tomorrow. Past Medical History Cardiac Medical History: Reports: Hyperlipidema - meds x 5 years, Hypertension - meds x 20 years, Heart Murmur - denies SBE prophylaxis Pulmonary Medical History: Reports: Bronchitis, Pneumonia - denies hospitalization Denies: Asthma, Chronic Obstructive Pulmonary Disease (COPD), Respiratory Failure, Sleep Apnea, Tuberculosis - Hx BCG vaccination in [place] as child Neurological Medical History: Denies: Seizures Renal/ Medical History: Denies: End Stage Renal Disease Malignancy Medical History: Denies: Breast Cancer, Cervical Cancer, Leukemia, Lung Cancer, Ovarian Cancer GI Medical History: Denies: Crohn's Disease, Gastroesophageal Reflux Disease, Hiatal Hernia Musculoskeltal Medical History: Reports: Arthritis Denies: Fibromyalgia Hematology: Reports: Anemia - currently Rx'ed p.o. iron 325mg daily Denies: Hemophilia, Sickle Cell Disease Infectious Medical History: Denies: HIV Past Surgical History Past Surgical History: Reports: Appendectomy, Cholecystectomy, Hysterectomy, Orthopedic Surgery - r knee Denies: Adenoidectomy, Amputation, Section, Colostomy, Coronary Artery Bypass Graft, Gastric Bypass Surgery, Herniorrhaphy, Mastectomy, Pacemaker, Tonsillectomy, Tubal Ligation Social History Smoking Status: Never Smoker Electronic Cigarette use?: No Hx Recreational Drug Use: No Hx Prescription Drug Abuse: No - Advance Directive Resuscitation Status: Full Code Family History Family History: None Parental Family History Reviewed: Yes - Family history of hypertension. Children Family History Reviewed: Yes Sibling(s) Family History Reviewed.: Yes Medication/Allergy Home Medications: Amlodipine Besylate [Norvasc 10 mg Tablet] 10 mg PO QAM 05/13/12 Atorvastatin Calcium [Lipitor 10 mg Tablet] 10 mg PO QAM 05/13/12 Cholecalciferol (Vitamin D3) [Vitamin D] 1,000 units PO QAM 05/13/12 Meclizine HCl 25 mg PO BID PRN #10 tab.chew 06/04/13 Aspirin [Aspirin EC] 81 mg PO DAILY 10/04/14 Calcium Carbonate [Calcium] 1,200 mg PO QAM 10/04/14 Ferrous Sulfate [Iron] 325 mg PO QAM 10/04/14 Fexofenadine HCl [Sommer] 180 mg PO QAM 10/04/14 Fluticasone Propionate [Flonase Nasal [place] 50 Mcg/[place] 16 gm] 1 spray NASL Q12 PRN 10/04/14 Losartan/Hydrochlorothiazide [Hyzaar 100-25 Tablet] 1 each PO QAM 10/04/14 Ondansetron HCl [Zofran 4 mg Tablet] 1 - 2 tab PO Q6 PRN #20 tablet 11/11/14 Oxycodone HCl/Acetaminophen [Percocet 5-325 mg Tablet] 1 tab PO ASDIR PRN #25 tablet 11/11/14 Fluconazole [Diflucan] 150 mg PO ONCE PRN #1 tablet 12/02/14 Phenazopyridine HCl [Pyridium] 100 mg PO BID 7 Days tablet 12/02/14 Sulfamethoxazole/Trimethoprim [Bactrim Ds Tablet] 1 each PO BID #14 tablet 12/02/14 Tramadol HCl [Ultram 50 mg Tablet] 50 mg PO ASDIR PRN #20 tablet 03/18/15 Gabapentin [Neurontin 300 mg Capsule] 300 mg PO Q8 #90 cap 02/08/16 Hydrocodone/Acetaminophen [[place] 5-325 Tablet] 1 each PO QID #15 tablet 09/30/16 Metaxalone [Skelaxin 800 mg Tablet] 800 mg PO ASDIR PRN #20 tablet 12/18/17 Cephalexin Monohydrate [Keflex 500 mg Capsule] 500 mg PO BID 7 Days #14 capsule 10/11/18 Allergies/Adverse Reactions: Penicillins Allergy (Intermediate, Verified 03/19/20 08:42) numbness of lips Tetanus Vaccines and Toxoid Adverse Reaction (Verified 03/19/20 08:42) Review of Systems Constitutional: PRESENT: fatigue, weakness. ABSENT: fever(s), headache(s), night sweats Ears: ABSENT: hearing changes Nose, Mouth, and Throat: ABSENT: sore throat Cardiovascular: PRESENT: chest pain. ABSENT: edema, palpitations Respiratory: ABSENT: dyspnea Gastrointestinal: ABSENT: coffee ground emesis, constipation, diarrhea, dysphagia Musculoskeletal: ABSENT: deformity Neurological: ABSENT: dizziness, frequent falls Psychiatric: ABSENT: anxiety, depression, homidical ideation, suicidal ideation Endocrine: ABSENT: cold intolerance, heat intolerance, polydipsia, polyuria Physical Exam Vital Signs: Temp Pulse Resp BP Pulse Ox 98.5 F 66 20 149/70 H 96 03/19/20 08:34 03/19/20 08:34 03/19/20 11:01 03/19/20 11:01 03/19/20 11:01 Intake & Output 03/18/20 03/19/20 03/20/20 06:59 06:59 06:59 Weight 76 kg General appearance: PRESENT: no acute distress, obese Head exam: PRESENT: atraumatic Eye exam: PRESENT: PERRLA Ear exam: PRESENT: normal external ear exam Teeth exam: PRESENT: poor dentation Neck exam: ABSENT: carotid bruit, JVD, lymphadenopathy, thyromegaly Respiratory exam: PRESENT: decreased breath sounds Cardiovascular exam: PRESENT: RRR. ABSENT: diastolic murmur, rubs, systolic murmur GI/Abdominal exam: PRESENT: normal bowel sounds, soft. ABSENT: distended, guarding, mass, organolmegaly, rebound, tenderness Rectal exam: PRESENT: deferred Extremities exam: PRESENT: full ROM. ABSENT: calf tenderness, clubbing, pedal edema Neurological exam: PRESENT: alert, awake, oriented to person, oriented to place, oriented to time, oriented to situation, CN II-XII grossly intact. ABSENT: motor sensory deficit Psychiatric exam: PRESENT: appropriate affect, normal mood. ABSENT: homicidal ideation, suicidal ideation Results Laboratory Results: 03/19/20 09:13 03/19/20 09:13 03/19/20 03/19/20 09:13 09:13 WBC 3.9 L RBC 4.13 Hgb 12.8 Hct 37.4 MCV 91 MCH 31.0 MCHC 34.2 RDW 13.0 Plt Count 219 Seg Neutrophils % 55.5 Sodium 138.7 Potassium 4.4 Chloride 104 Carbon Dioxide 26 Anion Gap 9 BUN 18 Creatinine 0.51 L Est GFR ( Amer) > 60 Glucose 96 Calcium 9.8 Total Bilirubin 0.5 AST 55 H Alkaline Phosphatase 46 Total Protein 7.8 Albumin 4.6 03/19/20 03/19/20 09:13 09:13 Creatine Kinase 93 CK-MB (CK-2) 1.49 Troponin I < 0.012 Impressions: Chest X-Ray 03/19/20 08:48 IMPRESSION: NO ACUTE RADIOGRAPHIC FINDING IN THE CHEST. Assessment and Plan - Diagnosis (1) Chest pain Qualifiers: Chest pain type: precordial pain Qualified Code(s): R07.2 - Precordial pain Is this a current diagnosis for this admission?: Yes Plan: 03/19/[id number]-dfxs-old female admitted for chest pain. Initial troponin is negative. EKG within normal limits. Started on aspirin, atorvastatin, DVT prophylaxis and GI prophylaxis. Scheduled for nuclear stress test tomorrow. Lipid panel was requested for tomorrow. Serial troponins are requested. Repeat EKG will be requested for this evening. Start her on IV morphine 1 mg every 4 as needed for chest pain. CT of the chest was requested to rule out PE. (2) HTN (hypertension) Is this a current diagnosis for this admission?: No Plan: 03/19/2020-patient has history of chronic essential hypertension. Blood pressure in the emergency room with 148/73. Plan is to resume her home medications. (3) Obesity Is this a current diagnosis for this admission?: No Plan: 03/19/2020-BMI is around 29. Diet exercise weight loss lifestyle modifications discussed with the patient. (4) Hyperlipemia Is this a current diagnosis for this admission?: No Plan: 03/19/2020-patient history of hyperlipidemia. To resume atorvastatin during the hospital stay. - Time Anticipated Discharge Disposition: Home, Self Care Anticipated Discharge Timeframe: within 24 hours
--- NOTE | 2020-03-19 14:52 | RADIOLOGY REPORT (SQ) ---
EXAM DESCRIPTION: CTA CHEST IMAGES COMPLETED DATE/TIME: 03/19/2020 2:34 pm REASON FOR STUDY: r/o pe R07.89 OTHER CHEST PAIN COMPARISON: None. TECHNIQUE: CT scan of the chest performed using helical scanning technique with dynamic intravenous contrast injection. Images reviewed with lung, soft tissue and bone windows. Reconstructed coronal and sagittal MPR images reviewed. Additional 3 dimensional post-processing performed to develop Maximal Intensity Projection images (IL P). All images stored on PACS. All CT scanners at this facility use dose modulation, iterative reconstruction, and/or weight based d osing when appropriate to reduce radiation dose to as low as reasonably achievable (ALARA). [facility]: Dose Right [facility]: CareDose [facility]: Dose Right [facility]: Teradose 4D [facility]: TapShield CONTRAST TYPE AND DOSE: contrast/concentration: Isovue mmol/ml; Total Contrast Delivered: 133.0 ml; Total Saline Delivered: 155.0 ml RENAL FUNCTION: GFR > 60. RADIATION DOSE: CT Rad equipment meets quality standard of care and radiation dose reduction techniq ues were employed. CTDIvol: 6.6 - 15.3 mGy. DLP: 1027 mGy-cm. . LIMITATIONS: None. FINDINGS: LUNGS AND PLEURA: No masses, infiltrates, or pneumothorax. No pleural effusions or pleura l calcifications. AORTA AND GREAT VESSELS: No aneurysm. No dissection. HEART: No pericardial effusion. Cardiomegaly. PULMONARY ARTERIES: No emboli visualized in the main pulmonary arteries or the segmental branches. HILAR AND MEDIASTINAL STRUCTURES: No identified masses or abnormal nodes. HARDWARE: None in the chest. UPPER ABDOMEN: Fatty liver. Limited exam. THYROID AND OTHER SOFT TISSUES: No masses. No adenopathy. BONES: No acute or significant finding. 3D MIPS: Confirm above findings. OTHER: No other significant finding. IMPRESSION: No PE. No acute findings. COMMENT: Quality ID # [id number]: Final reports with documentation of one or more dose reduction techniques (e.g., Automated exposure control, adjustment of the mA and/or kV according to patient size, use of iterative reconstruction technique) TECHNICAL DOCUMENTATION: JOB ID: [id number] 2010 [employer]- All Rights Reserved Reading location - IP/workstation name: [email or web address]
[2020-03-19] MEDS ORDERED: REGADENOSON INJ 0.4 MG/5 ML DISP.SYRIN IV ONE (15:14)
[2020-03-19] MEDS: GABAPENTIN 300 MG CAPSULE PO SCH ×2 (16:27→21:23)
[2020-03-19] MEDS: PANTOPRAZOLE SODIUM 40 MG TABLET.DR PO SCH (16:28)
[2020-03-19] MEDS: HEPARIN SOD (PORCINE) 5,000 UNIT/ML 1 ML VIAL SUBCUT SCH ×2 (16:34→21:23)
--- NOTE | 2020-03-19 19:51 | EKG REPORT ---
SEVERITY:- ABNORMAL ECG - SINUS RHYTHM FIRST DEGREE AV BLOCK : Confirmed by: Dash Harman 19-Mar-2020 19:50:28
[2020-03-19] MEDS: ATORVASTATIN CALCIUM 10 MG TABLET PO SCH (21:23)
[2020-03-20] MEDS: ONDANSETRON HCL INJ/PF 4 MG/2 ML SDV IV PRN ×2 (03:28→20:16)
[2020-03-20] MEDS: GABAPENTIN 300 MG CAPSULE PO SCH ×3 (06:16→21:48)
[2020-03-20] MEDS: PANTOPRAZOLE SODIUM 40 MG TABLET.DR PO SCH ×2 (06:18→17:31)
[2020-03-20] MEDS: HEPARIN SOD (PORCINE) 5,000 UNIT/ML 1 ML VIAL SUBCUT SCH ×3 (06:19→21:55)
[2020-03-20] MEDS: ASPIRIN 325 MG TABLET PO SCH (09:07)
[2020-03-20] MEDS: FERROUS SULFATE 325 MG TABLET PO SCH (09:08)
[2020-03-20] MEDS: AMLODIPINE BESYLATE 10 MG TABLET PO SCH (09:08)
[2020-03-20 10:39] LABS: ABSOLUTE EOSINOPHILS # (AUTO) 0.1 10^3/uL (0.0-0.6); ABSOLUTE LYMPHOCYTES (AUTO) 1.3 10^3/uL (0.5-4.7); ABSOLUTE MONOCYTES (AUTO) 0.2 10^3/uL (0.1-1.4); ABSOLUTE NEUT (AUTO) 1.6 10^3/uL (1.7-8.2); BASOPHILS % (AUTO) 0.4 % (0-2); EOSINOPHILS % (AUTO) 3.4 % (0-6); HEMATOCRIT 36.9 % (36.0-47.0); HEMOGLOBIN 12.2 g/dL (12.0-15.5); LYMPHOCYTES % (AUTO) 40.5 % (13-45); MEAN CORPUSCULAR HEMOGLOBIN 30.5 pg (27.0-33.4); MEAN CORPUSCULAR HGB CONC 33.2 g/dL (32.0-36.0); MEAN CORPUSCULAR VOLUME 92 fl (80-97); MONOCYTES % (AUTO) 6.4 % (3-13); PLATELET COUNT 204 10^3/uL (150-450); RED BLOOD COUNT 4.01 10^6/uL (3.72-5.28); RED CELL DISTRIBUTION WIDTH 13.2 % (11.5-14.0); SEGMENTED NEUTROPHILS % (AUTO) 49.3 % (42-78); TOTAL CELLS COUNTED % (AUTO) 100 %; WHITE BLOOD COUNT 3.2 10^3/uL (4.0-10.5)
[2020-03-20 10:51] LABS: INTERNATIONAL RATION (INR) 0.94; PROTHROMBIN TIME 12.8 SEC (11.4-15.4)
[2020-03-20 11:01] LABS: ALBUMIN 4.3 g/dL (3.5-5.0); ALKALINE PHOSPHATASE 46 U/L (38-126); ANION GAP 13 (5-19); ASPARTATE AMINO TRANSFERASE 48 U/L (14-36); BILIRUBIN,DIRECT 0.3 mg/dL (0.0-0.4); BILIRUBIN,TOTAL 0.5 mg/dL (0.2-1.3); BLOOD UREA NITROGEN 21 mg/dL (7-20); CALCIUM 9.5 mg/dL (8.4-10.2); CARBON DIOXIDE 22 mmol/L (22-30); CHLORIDE 102 mmol/L (98-107); GLUCOSE 267 mg/dL (75-110); TRIGLYCERIDES 288 mg/dL (<150)
[2020-03-20 11:02] LABS: CHOLESTEROL 148.37 mg/dL (0-200)
[2020-03-20 11:13] LABS: DIRECT LDL 54 mg/dL (<100)
[2020-03-20 11:18] LABS: VLDL CHOLESTEROL 57.6 mg/dL (10-31)
[2020-03-20] MEDS ORDERED: SIMETHICONE 80 MG TAB.CHEW PO PRN (14:10)
--- NOTE | 2020-03-20 16:17 | PDOC PROGRESS REPORT ---
Subjective Subjective:: Per Previous Physician: "ADRIAN RYAN is a 74 year old female with history of hypertension, hypercholesterolemia, history of right knee replacement, heart murmur came to the emergency room with complaints of chest pain. She called primary care physician upon his advice came to the emergency room for further evaluation. Work-up is negative so far. At the time of my examination patient is chest pain-free. Agreed to stay in the hospital for further management. Scheduled for nuclear stress test tomorrow." 03/20/2020 Patient was scheduled to have a stress test this morning however she was given coffee on her tray this morning and it was canceled by roof slater. She was injected with the contrast. Stress test has been rescheduled for tomorrow. Patient has no new complaints. Reason For Visit: CHEST PAIN Physical Exam Vital Signs: Temp Pulse Resp BP Pulse Ox 98.0 F 66 16 115/56 L 94 03/20/20 07:18 03/20/20 14:00 03/19/20 23:00 03/19/20 23:00 03/19/20 23:00 Intake & Output 03/19/20 03/20/20 03/21/20 06:59 06:59 06:59 Intake Total 1000 120 Balance 1000 120 Weight 79.6 kg General appearance: PRESENT: no acute distress, obese, well-developed, well- nourished Head exam: PRESENT: atraumatic, normocephalic Eye exam: PRESENT: conjunctiva pink. ABSENT: scleral icterus Mouth exam: PRESENT: moist Respiratory exam: PRESENT: clear to auscultation kam. ABSENT: rales, rhonchi, wheezes Cardiovascular exam: PRESENT: RRR. ABSENT: diastolic murmur, rubs, systolic murmur GI/Abdominal exam: PRESENT: normal bowel sounds, soft. ABSENT: distended, guarding, mass, organolmegaly, rebound, tenderness Neurological exam: PRESENT: alert, awake, oriented to person, oriented to place, oriented to time, oriented to situation Psychiatric exam: PRESENT: appropriate affect, normal mood Skin exam: PRESENT: dry, intact, warm Results Laboratory Results: 03/20/20 10:22 03/20/20 10:22 03/20/20 03/20/20 03/20/20 10:22 10: 10:22 WBC 3.2 L RBC 4.01 Hgb 12.2 Hct 36.9 MCV 92 MCH 30.5 MCHC 33.2 RDW 13.2 Plt Count 204 Seg Neutrophils % 49.3 Sodium 137.3 Potassium 4.0 Chloride 102 Carbon Dioxide 22 Anion Gap 13 BUN 21 H Creatinine 0.61 Est GFR ( Amer) > 60 Glucose 267 H Calcium 9.5 Magnesium 2.3 Total Bilirubin 0.5 AST 48 H Alkaline Phosphatase 46 Total Protein 7.0 Albumin 4.3 Triglycerides 288 H Cholesterol 148.37 LDL Cholesterol Direct 54 VLDL Cholesterol 57.6 H HDL Cholesterol 58 TSH 1.11 03/19/20 03/19/20 03/19/20 09:13 09:13 11:47 Creatine Kinase 93 CK-MB (CK-2) 1.49 Troponin I < 0.012 < 0.012 NT-Pro-B Natriuret Pep 03/19/20 03/20/20 03/20/20 19:02 00:52 10:22 Creatine Kinase CK-MB (CK-2) Troponin I < 0.012 < 0.012 NT-Pro-B Natriuret Pep 78 Impressions: Chest/Abdomen CTA 03/19/20 00:00 IMPRESSION: No PE. No acute findings. Chest X-Ray 03/19/20 08:48 IMPRESSION: NO ACUTE RADIOGRAPHIC FINDING IN THE CHEST. Assessment and Plan - Diagnosis (1) Chest pain Qualifiers: Chest pain type: precordial pain Qualified Code(s): R07.2 - Precordial pain Is this a current diagnosis for this admission?: Yes Plan: Per Previous Physician: "03/19/[id number]-howf-old female admitted for chest pain. Initial troponin is negative. EKG within normal limits. Started on aspirin, atorvastatin, DVT prophylaxis and GI prophylaxis. Scheduled for nuclear stress test tomorrow. Lipid panel was requested for tomorrow. Serial troponins are requested. Repeat EKG will be requested for this evening. Start her on IV morphine 1 mg every 4 as needed for chest pain. CT of the chest was requested to rule out PE." 03/20/2020 No chest pain today Stress test canceled due to patient getting coffee this morning, rescheduled for tomorrow (2) HTN (hypertension) Is this a current diagnosis for this admission?: No Plan: Per Previous Physician: "03/19/2020-patient has history of chronic essential hypertension. Blood pressure in the emergency room with 148/73. Plan is to resume her home medications." Stable (3) Hyperlipemia Is this a current diagnosis for this admission?: No Plan: Per Previous Physician: "03/19/2020-patient history of hyperlipidemia. To resume atorvastatin during the hospital stay." (4) Obesity Is this a current diagnosis for this admission?: No Plan: Weight loss counseling - Time Time Spent with patient: 15-24 minutes Medications reviewed and adjusted accordingly: Yes Anticipated Discharge Disposition: Home, Self Care Anticipated Discharge Timeframe: within 24 hours
[2020-03-20] MEDS ORDERED: CALCIUM CARBONATE 500 MG TAB.CHEW PO PRN (19:04)
[2020-03-20] MEDS: ATORVASTATIN CALCIUM 10 MG TABLET PO SCH (21:55)
[2020-03-21] MEDS: GABAPENTIN 300 MG CAPSULE PO SCH ×2 (06:20→13:21)
[2020-03-21] MEDS: PANTOPRAZOLE SODIUM 40 MG TABLET.DR PO SCH ×2 (06:37→16:37)
[2020-03-21] MEDS: HEPARIN SOD (PORCINE) 5,000 UNIT/ML 1 ML VIAL SUBCUT SCH ×2 (06:37→13:21)
[2020-03-21] MEDS: ASPIRIN 325 MG TABLET PO SCH (10:37)
[2020-03-21] MEDS: AMLODIPINE BESYLATE 10 MG TABLET PO SCH (10:37)
[2020-03-21] MEDS: FERROUS SULFATE 325 MG TABLET PO SCH (10:37)
[2020-03-21] MEDS ORDERED: REGADENOSON INJ 0.4 MG/5 ML DISP.SYRIN IV ONE (14:50)
[2020-03-21 17:00] VITALS: BP 121/54
--- NOTE | 2020-03-21 17:32 | PDOC DISCHARGE SUMMARY ---
Impression - Admit/DC Date/PCP Admission Date/Primary Care Provider: 03/19/20 11:34 CHRISTIAN NEELY MD Discharge Date: 03/21/20 - Discharge Diagnosis (1) Chest pain Is this a current diagnosis for this admission?: Yes (2) HTN (hypertension) Is this a current diagnosis for this admission?: No (3) Hyperlipemia Is this a current diagnosis for this admission?: No (4) Obesity Is this a current diagnosis for this admission?: No - Additional Information Resuscitation Status: Full Code Discharge Diet: As Tolerated, Regular Discharge Activity: Activity As Tolerated, Balance Activity w/Rest Referrals: CHRISTIAN NEELY MD [Primary Care Provider] - 03/22/20 3:15 pm Home Medications: Allopurinol [Zyloprim 100 mg Tablet] 100 mg PO DAILY 03/19/20 Amlodipine Besylate [Norvasc 10 mg Tablet] 10 mg PO DAILY 03/19/20 Aspirin [Ecotrin] 81 mg PO DAILY 03/19/20 Cholecalciferol (Vitamin D3) [Vitamin D3 1000 Unit Tablet] 2,000 unit PO QAM 03/19/20 Hydrochlorothiazide [Hydrodiuril 12.5 mg Tablet] 12.5 mg PO DAILY 03/19/20 Losartan Potassium 100 mg PO DAILY 03/19/20 Potassium Chloride [Klor-Con 10 Meq Tablet ER] 10 meq PO DAILY 03/19/20 Rosuvastatin Calcium 5 mg PO QHS 03/19/20 History of Present Illiness History of Present Illness: Per Previous Physician: "ADRIAN RYAN is a 74 year old female with history of hypertension, hypercholesterolemia, history of right knee replacement, heart murmur came to the emergency room with complaints of chest pain. She called primary care physician upon his advice came to the emergency room for further evaluation. Work-up is negative so far. At the time of my examination patient is chest pain-free. Agreed to stay in the hospital for further management. Scheduled for nuclear stress test tomorrow." Hospital Course Hospital Course: Per Previous Physician: "ADRIAN RYAN is a 74 year old female with history of hypertension, hypercholesterolemia, history of right knee replacement, heart murmur came to the emergency room with complaints of chest pain. She called primary care physician upon his advice came to the emergency room for further evaluation. Work-up is negative so far. At the time of my examination patient is chest pain-free. Agreed to stay in the hospital for further management. Scheduled for nuclear stress test tomorrow." 03/20/2020 Patient was scheduled to have a stress test this morning however she was given coffee on her tray this morning and it was canceled by manager port. She was injected with the contrast. Stress test has been rescheduled for tomorrow. Patient has no new complaints. Stress test completed on 05/21, results were negative, discussed the case with Dr. Collado in cardiology. Discussed the results with the patient and her who would like to be discharged home at this time. She needs follow-up with her PCP and states she has a follow-up tomorrow actually. (1) Chest painresolved since admission Qualifiers: Chest pain type: precordial pain Qualified Code(s): R07.2 - Precordial pain Is this a current diagnosis for this admission?: Yes Plan: Per Previous Physician: "03/19/[id number]-edzu-old female admitted for chest pain. Initial troponin is negative. EKG within normal limits. Started on aspirin, atorvastatin, DVT prophylaxis and GI prophylaxis. Scheduled for nuclear stress test tomorrow. Lipid panel was requested for tomorrow. Serial troponins are requested. Repeat EKG will be requested for this evening. Start her on IV morphine 1 mg every 4 as needed for chest pain. CT of the chest was requested to rule out PE." 03/20/2020 No chest pain today Stress test canceled due to patient getting coffee this morning, rescheduled for tomorrow Stress test negative for ischemia (2) HTN (hypertension) Is this a current diagnosis for this admission?: No Plan: Per Previous Physician: "03/19/2020-patient has history of chronic essential hypertension. Blood pressure in the emergency room with 148/73. Plan is to resume her home medications." Stable (3) Hyperlipemia Is this a current diagnosis for this admission?: No Plan: Per Previous Physician: "03/19/2020-patient history of hyperlipidemia. To resume atorvastatin during the hospital stay." (4) Obesity Is this a current diagnosis for this admission?: No Plan: Weight loss counseling Physical Exam Vital Signs: Temp Pulse Resp BP Pulse Ox 97.9 F 59 L 17 121/54 L 93 03/21/20 16:58 03/21/20 16:58 03/21/20 16:58 03/21/20 16:58 03/21/20 16:58 Intake & Output 03/20/20 03/21/20 03/22/20 06:59 06:59 06:59 Intake Total 1000 120 Balance 1000 120 Weight 79.6 kg 80.1 kg Exam: General appearance: PRESENT: no acute distress, obese, well-developed, well- nourished Head exam: PRESENT: atraumatic, normocephalic Eye exam: PRESENT: conjunctiva pink. ABSENT: scleral icterus Mouth exam: PRESENT: moist Respiratory exam: PRESENT: clear to auscultation kam. ABSENT: rales, rhonchi, wheezes Cardiovascular exam: PRESENT: RRR. ABSENT: diastolic murmur, rubs, systolic murmur GI/Abdominal exam: PRESENT: normal bowel sounds, soft. ABSENT: distended, guarding, mass, organolmegaly, rebound, tenderness Neurological exam: PRESENT: alert, awake, oriented to person, oriented to place, oriented to time, oriented to situation Psychiatric exam: PRESENT: appropriate affect, normal mood Skin exam: PRESENT: dry, intact, warm Results Laboratory Results: WBC 3.2 10^3/uL (4.0-10.5) L 03/20/20 10:22 RBC 4.01 10^6/uL (3.72-5.28) 03/20/20 10:22 Hgb 12.2 g/dL (12.0-15.5) 03/20/20 10:22 Hct 36.9 % (36.0-47.0) 03/20/20 10:22 MCV 92 fl (80-97) 03/20/20 10:22 MCH 30.5 pg (27.0-33.4) 03/20/20 10:22 MCHC 33.2 g/dL (32.0-36.0) 03/20/20 10:22 RDW 13.2 % (11.5-14.0) 03/20/20 10:22 Plt Count 204 10^3/uL (150-450) 03/20/20 10:22 Lymph % (Auto) 40.5 % (13-45) 03/20/20 10:22 [place] % (Auto) 6.4 % (3-13) 03/20/20 10:22 Eos % (Auto) 3.4 % (0-6) 03/20/20 10:22 Baso % (Auto) 0.4 % (0-2) 03/20/20 10:22 Absolute Neuts (auto) 1.6 10^3/uL (1.7-8.2) L 03/20/20 10:22 Absolute Lymphs (auto) 1.3 10^3/uL (0.5-4.7) 03/20/20 10:22 Absolute Monos (auto) 0.2 10^3/uL (0.1-1.4) 03/20/20 10:22 Absolute Eos (auto) 0.1 10^3/uL (0.0-0.6) 03/20/20 10:22 Absolute Basos (auto) 0.0 10^3/uL (0.0-0.2) 03/20/20 10:22 Seg Neutrophils % 49.3 % (42-78) 03/20/20 10:22 PT 12.8 SEC (11.4-15.4) 03/20/20 10:22 INR 0.94 03/20/20 10:22 Sodium 137.3 mmol/L (137-145) 03/20/20 10:22 Potassium 4.0 mmol/L (3.6-5.0) 03/20/20 10:22 Chloride 102 mmol/L (98-107) 03/20/20 10:22 Carbon Dioxide 22 mmol/L (22-30) 03/20/20 10:22 Anion Gap 13 (5-19) 03/20/20 10:22 BUN 21 mg/dL (7-20) H 03/20/20 10:22 Creatinine 0.61 mg/dL (0.52-1.25) 03/20/20 10:22 Est GFR ( Amer) > 60 (>60) 03/20/20 10:22 Est GFR (MDRD) Non-Af > 60 (>60) 03/20/20 10:22 Glucose 267 mg/dL (75-110) H 03/20/20 10:22 Hemoglobin A1c % 5.8 % (4.7-6.0) 03/20/20 10:22 Calcium 9.5 mg/dL (8.4-10.2) 03/20/20 10:22 Magnesium 2.3 mg/dL (1.6-2.3) 03/20/20 10:22 Total Bilirubin 0.5 mg/dL (0.2-1.3) 03/20/20 10:22 Direct Bilirubin 0.3 mg/dL (0.0-0.4) 03/20/20 10:22 Neonat Total Bilirubin Not Reportable 03/20/20 10:22 Neonat Direct Bilirubin Not Reportable 03/20/20 10:22 Neonat Indirect Bili Not Reportable 03/20/20 10:22 AST 48 U/L (14-36) H 03/20/20 10:22 ALT 55 U/L (<35) H 03/20/20 10:22 Alkaline Phosphatase 46 U/L (38-126) 03/20/20 10:22 Creatine Kinase 93 U/L (30-135) 03/19/20 09:13 CK-MB (CK-2) 1.49 ng/mL (<4.55) 03/19/20 09:13 Troponin I < 0.012 ng/mL 03/20/20 00:52 NT-Pro-B Natriuret Pep 78 pg/mL (<125) 03/20/20 10: Total Protein 7.0 g/dL (6.3-8.2) 03/20/20 10: Albumin 4.3 g/dL (3.5-5.0) 03/20/20 10:22 Triglycerides 288 mg/dL (<150) H 03/20/20 10:22 Cholesterol 148.37 mg/dL (0-200) 03/20/20 10:22 LDL Cholesterol Direct 54 mg/dL (<100) 03/20/20 10:22 VLDL Cholesterol 57.6 mg/dL (10-31) H 03/20/20 10:22 HDL Cholesterol 58 mg/dL (>40) 03/20/20 10:22 TSH 1.11 uIU/mL (0.47-4.68) 03/20/20 10:22 03/19/20 03/19/20 03/19/20 09:13 11:47 19:02 CK-MB (CK-2) 1.49 Troponin I < 0.012 < 0.012 < 0.012 NT-Pro-B Natriuret Pep 03/20/20 03/20/20 00:52 10:22 CK-MB (CK-2) Troponin I < 0.012 NT-Pro-B Natriuret Pep 78 Impressions: Chest/Abdomen CTA 03/19/20 00:00 IMPRESSION: No PE. No acute findings. Chest X-Ray 03/19/20 08:48 IMPRESSION: NO ACUTE RADIOGRAPHIC FINDING IN THE CHEST. Plan Plan of Treatment: Follow-up with PCP Time Spent: Greater than 30 Minutes Stroke Is this a Stroke Patient?: No Acute Heart Failure Is this a Heart Failure Patient?: No
--- NOTE | 2020-03-22 00:24 | DRAGON STRESS TEST REPORT ---
2 Day Intravenous Lexiscan Cardiolite stress test using single photon emmision computerized tomography. Date of Resting procedure: 03/20/2020. Date of Stress procedure: 03/21/2020. Ordering Provider: Dr. Foster Indication: Chest pain. Coronary risk factors: Age, hypertension, and dyslipidemia. Resting EKG: Sinus Rhythm. Within Normal Limits. Stress EKG: No changes of ischemia. The patient had no chest pain or discomfort, and there were no arrhythmias seen. Reason for termination: Protocol. Conclusions: Normal EKG and hemodynamic response to IV Lexiscan. Nuclear data: At rest on 03/20/2020 the patient was given 10.66 millicuries of technetium 99m sestamibi injected intravenously. As per protocol rest non gated SPECT images were obtained. Subsequently the patient, on 03/21/2020, was given intravenous Lexiscan at a dose of 0.4 mg in 5 mL intravenously, followed by flush with normal saline. Subsequently the stress dose of 32.4 millicuries of technetium 99m sestamibi was injected intravenously. As per protocol stress gated images were obtained. Nuclear interpretation: Review of images showed that all segments of the myocardium had normal perfusion at rest, and normal perfusion post stress with IV Lexiscan. All segments of the myocardium had normal motion, contraction, and thickening by gated study. T. I D. ratio was normal at 1.17. Computer read rest, and stress left ventricular ejection fraction were 79%, and 70%, respectively. Conclusion: 1. There is no scintigraphic evidence of Lexiscan induced myocardial ischemia. 2. There is no scintigraphic evidence of myocardial infarction/scar. Recommendations: Aggressive risk factor modification, and treating the underlying co- morbidities. MTDD
== END 2020-03-21 17:08 | disposition home or self-care (01) ==
LOC: ER 08:23 → EH 11:34 → 3W 14:41
PROVIDERS: ADMIT Internal Medicine; ATTEND Internal Medicine
DX: R07.2 Precordial pain (principal); I10 Essential (primary) hypertension; E78.5 Hyperlipidemia, unspecified; E66.9 Obesity, unspecified; R53.83 Other fatigue; R53.1 Weakness; D64.9 Anemia, unspecified; I44.0 Atrioventricular block, first degree; Z79.899 Other long term (current) drug therapy; Z79.82 Long term (current) use of aspirin; Z68.29 Body mass index [BMI] 29.0-29.9, adult
CPT/HCPCS: 93005; 99285; 36415 ×2; 82553; 82550; 83735; 84443; 85025 ×2; 85610; 80053 ×2; 84484 ×2; 83036; 80061; 83880; 93017; 71045; 78452; 71275; 93010; G0378 ×3; A9500; J2785; A9270 ×10; J1644 ×3; J3490 ×3; J2405; Q9969